=== PATIENT | female | born 1965 | race Caucasian/White ===

== ENCOUNTER 2021-02-12 18:26 | Emergency (ER) | payer OTHER ==
[~2021-02-12 18:26] MED LIST: ADULT LOW DOSE81 MG PO; CELEXA20 MG PO; CYCLOBENZAPRINE10 MG PO; CYCLOBENZAPRINE5 MG PO; DICLOFENAC 1% TOP; ELAVIL 25 MG TA25 MG PO; IBUPROFEN600 MG PO; IMDUR ER TAB 3030 MG PO; LIPITOR TAB 2020 MG PO; LOPRESSOR 25 MG25 MG PO; LOPRESSOR 50 MG50 MG PO; NORVASC 5 MG TAB5 MG PO; PREDNISONE10 MG PO; PREVACID 30 MG30 MG PO; PREVACID15 MG PO; TOPAMAX25 MG PO
[2021-02-12] MEDS ORDERED: IBUPROFEN800 MG PO (19:41)
[2021-02-12] MEDS ORDERED: CYCLOBENZAPRINE10 MG PO (19:41)
== END 2021-02-12 20:18 | disposition home or self-care (01) ==
LOC: ER1 18:26
DX: M77.9 Enthesopathy, unspecified (principal); I25.10 Atherosclerotic heart disease of native coronary artery without angina pectoris; I10 Essential (primary) hypertension; I25.2 Old myocardial infarction; Z90.49 Acquired absence of other specified parts of digestive tract
CPT/HCPCS: 73030; 96372; 99283; J1885

== ENCOUNTER 2021-05-05 22:41 | Emergency (ER) | payer OTHER ==
[~2021-05-05 22:41] MED LIST changes: +IBUPROFEN800 MG PO
[2021-05-06] MEDS ORDERED: MOBIC7.5 MG PO (03:41)
== END 2021-05-06 03:48 | disposition home or self-care (01) ==
LOC: ER1 22:41
DX: M25.511 Pain in right shoulder (principal); I10 Essential (primary) hypertension; E78.5 Hyperlipidemia, unspecified; Z88.1 Allergy status to other antibiotic agents; X50.9XXA Other and unspecified overexertion or strenuous movements or postures, initial encounter; Y92.89 Other specified places as the place of occurrence of the external cause; Y99.0 Civilian activity done for income or pay
CPT/HCPCS: 73030; 96374; 99283; J1885

== ENCOUNTER 2021-06-23 21:44 | Emergency (ER) | payer OTHER ==
[~2021-06-23 21:44] MED LIST changes: +MOBIC7.5 MG PO
[2021-06-23 22:26] LABS: HEMOGLOBIN 15.4 gm/dl (12.3-15.3); RED BLOOD COUNT 5.12 M/UL (4.00-5.10); WHITE BLOOD COUNT 9.3 K/UL (4.5-11.0)
[2021-06-23 22:45] LABS: BUN/CREATININE RATIO 24 (0-10)
== END 2021-06-24 01:35 | disposition home or self-care (01) ==
LOC: ER1 21:44
PROVIDERS: Physician Assistant
DX: R07.89 Other chest pain (principal); I25.10 Atherosclerotic heart disease of native coronary artery without angina pectoris; I11.9 Hypertensive heart disease without heart failure; E78.5 Hyperlipidemia, unspecified; Z88.1 Allergy status to other antibiotic agents
CPT/HCPCS: 71045; 80053; 82550; 82553; 83874; 84484; 85025; 93005; 99285

== ENCOUNTER 2021-10-02 18:51 | Emergency (ER) | payer OTHER ==
[2021-10-02 19:27] LABS: HEMOGLOBIN 14.9 gm/dl (12.3-15.3); RED BLOOD COUNT 4.97 M/UL (4.00-5.10)
[2021-10-02 20:00] LABS: BUN/CREATININE RATIO 17 (0-10)
== END 2021-10-02 20:38 | disposition home or self-care (01) ==
LOC: ER1 18:51
DX: R07.89 Other chest pain (principal); E78.5 Hyperlipidemia, unspecified; I25.2 Old myocardial infarction; I10 Essential (primary) hypertension; Z79.82 Long term (current) use of aspirin; Z88.1 Allergy status to other antibiotic agents
CPT/HCPCS: 71045; 80053; 82550; 82553; 84484; 85025; 93005; 99285

== ENCOUNTER → 2021-10-13 | Outpatient (CLI) | payer OTHER | LOC: RAD 14:52 | DX: M54.2 Cervicalgia (principal); M54.6 Pain in thoracic spine; M54.50 Low back pain, unspecified; R05.9 Cough, unspecified; M47.812 Spondylosis without myelopathy or radiculopathy, cervical region; M47.814 Spondylosis without myelopathy or radiculopathy, thoracic region; M47.816 Spondylosis without myelopathy or radiculopathy, lumbar region | CPT/HCPCS: 71046; 72040; 72070; 72100 ==